=== PATIENT | female | born 1965 | race Caucasian/White ===

== ENCOUNTER 2020-03-28 16:28 | Outpatient (CLI) | payer OTHER, SELFPAY ==
--- NOTE | ~2020-03-28 | MM_ITS ---
EXAMINATION: MM screening amanda BI w elaine HISTORY: Screening mammogram, family history of breast cancer in her sister. TECHNIQUE: Craniocaudal and mediolateral oblique 3-D tomosynthesis images were obtained and synthetic 2-D images were generated. CAD analysis was submitted and interpreted. COMPARISON: No prior mammogram is available for comparison at this institution. BREAST PARENCHYMAL COMPOSITION: There are scattered areas of fibroglandular density. FINDINGS: RIGHT BREAST: There is no evidence of suspicious mass, calcification, or architectural distortion to suggest malignancy. LEFT BREAST: There is focal asymmetry and possible architectural distortion in the upper breast. IMPRESSION: 1. Focal asymmetry and possible architectural distortion of the left breast. 2. Comparison with prior mammograms is necessary. BI-RADS Category 0: Incomplete: Needs comparison with prior mammograms. Reviewed, dictated and finalized at location A. HANDLER
== END 2020-03-28 16:29 | disposition home or self-care (01) ==
LOC: ANHIMG 16:42
PROVIDERS: PCP Family Medicine; Visit Provider Family Medicine
DX: Z12.31 Encounter for screening mammogram for malignant neoplasm of breast (principal); R92.8 Other abnormal and inconclusive findings on diagnostic imaging of breast
CPT/HCPCS: 77063; 77067

== ENCOUNTER 2020-04-11 15:54 | Outpatient (CLI) | payer OTHER, SELFPAY ==
--- NOTE | ~2020-04-11 | CT_ITS ---
EXAMINATION: CT abdomen pelvis wo con DATE: 04/11/2020 16:37 INDICATION: Dorsalgia. Right-sided kidney pain. Nephrolithiasis. TECHNIQUE: Computed tomography (CT) of the abdomen and pelvis was performed without intravenous contr ast. Automated exposure control and iterative reconstruction technique were employed. The dose-length product was 187.82 mGy-cm. COMPARISON: 08/05/2016 FINDINGS: Mild atelectasis/scarring in the right middle lobe and lingula. 3 Pneumatoceles in the left lower lob e. Heart size is normal. No pericardial or pleural effusion. Diffuse hepatic steatosis. Multiple hepa tic cysts the largest measuring up to 4.4 cm. Gallbladder, spleen, pancreas and bilateral adrenal gla nds are normal. Bilateral nonobstructing nephrolithiasis with with about 5 tiny right renal stones th e largest measuring 1-2 mm at the lower pole and with 2 left renal stones the largest measuring 1 mm. Approximately 1 cm low-attenuation cyst at the lower pole of the right kidney. No stones seen along the course of the ureters and no hydronephrosis. No abnormal bowel wall thickening or obstruction. Wh at is likely the normal appendix is identified along side the cecum in the right lower quadrant. No p eriappendiceal inflammatory stranding to suggest acute appendicitis. Bladder, anteverted uterus and b ilateral adnexa are unremarkable. No free intraperitoneal gas or fluid. No pathologically enlarged ab dominal or pelvic lymphadenopathy. Bones are unremarkable. IMPRESSION: 1. Tiny bilateral nonobstructing renal stones, the largest measuring 2 mm in the right kidney. Reviewed, dictated and finalized at location A. ITORY ACCOUNT MANAGER IMPRESSION: 1. Tiny bilateral nonobstructing renal stones, the largest measuring 2 mm in th e right kidney.
== END 2020-04-11 15:55 | disposition home or self-care (01) ==
PROVIDERS: PCP Family Medicine; Visit Provider Physician Assistant
DX: M54.9 Dorsalgia, unspecified (principal); R39.15 Urgency of urination; N20.0 Calculus of kidney
CPT/HCPCS: 74176

== ENCOUNTER 2020-05-15 12:52 | Outpatient (CLI) | payer OTHER, SELFPAY ==
--- NOTE | ~2020-05-15 | MM_ITS ---
EXAMINATION: MM diagnostic mammo unilat LT HISTORY: Possible architectural distortion of the left breast on screening mammogram TECHNIQUE: Additional 3-D tomosynthesis images of the left breast were performed and synthetic 2-D im ages were generated. CAD analysis was submitted and interpreted. COMPARISON: 03/28/2020, 10/06/2014, 06/20/2011 BREAST PARENCHYMAL COMPOSITION: There are scattered areas of fibroglandular density. FINDINGS: There is no evidence of suspicious mass, calcification, or architectural distortion to sug gest malignancy. There has been no suspicious interval change. IMPRESSION: 1. No mammographic evidence of malignancy. 2. Recommend routine screening mammography in one year. BI-RADS Category 1: Negative Reviewed, dictated and finalized at location A.
== END 2020-05-15 12:53 | disposition home or self-care (01) ==
LOC: ANHIMG 12:53
PROVIDERS: PCP Family Medicine; Visit Provider Family Medicine
DX: R92.8 Other abnormal and inconclusive findings on diagnostic imaging of breast (principal)
CPT/HCPCS: 77065

== ENCOUNTER 2020-05-23 17:00 | Outpatient (RCR) | payer OTHER, SELFPAY ==
--- NOTE | 2020-05-02 17:54 | PTOPEVAL ---
PHYSICAL THERAPY EVALUATION Thank you for referring Madiha Connors to [facility].? Madiha was evaluated for the dx of right shoulder pain and marcellus. hip bursitis. The patient is scheduled to be seen for therapy? 1x/week for 4 weeks (1x wk per patient preference). Please review, sign, date and return this plan of care MELA. I agree with and certify that the following plan of care is medically necessary. Referring Physician Date Referring Provider: Du Draper MD *PT Outpatient Evaluation Start: 05/02/20 16:24 Freq: Status: Active Protocol: Document 05/02/20 16:24 MLV (Rec: 05/02/20 17:16 MLV [id number]) Assessment Status Evaluation Evaluation Information Problem Diagnosis right shoulder pain and marcellus. hip bursitis Onset February 2020 for shoulder, hips pain for a couple years Cause no event for either problems Additional Evaluation Detail The patient began having more serious shoulder pain, provoking her to seek MD assessment. The patient was diagnosed with bursitis/ tendonitis and tendon fraying. The patient received a cortisone shot with about 50% improvement. The patient has pain with driving, reaching behind her back, dressing, reaching overhead and sidelying to sleep. The patient works time checker with office work. For the hips, the pain occurs with sitting on soft surfaces longer times. The patient's hobbies are reading/crafts. The patient exercises semi regular with treadmill, bike and tae-meli. Diagnostic Tests X-Rays For This Problem Yes: bursitis/tendonitis shoulder Pain Assessment Timing of Pain Assessment Timing of Pain Assessment Assessment Pain Scale Pain Scale Used Numeric (1 - 10) Self Report Pain Assessment Bilateral Hip(s) Reported Pain Level 0 Other Pain Description pain after sitting that alleviates after 10-20ft movement Greatest Pain Intensity 8 Pain Aggravating Factors Prolonged Position,Sitting Pain Behaviors Limping Right Shoulder(s) Reported Pain Level
--- NOTE | 2020-05-10 08:37 | PCPTNOTE ---
Patient called & cancelled scheduled appointment this date due to having scheduled dentist appointment.
--- NOTE | 2020-06-13 10:14 | PCPTNOTE ---
PHYSICAL THERAPY EVALUATION Attending Provider: Du Draper MD Patient:Madiha Connors Date of :1965 Patient has not returned for any further treatments since 05/23/2020, therefore she will be discharged at this time. Patient?s initial visit was on 05/02/2020 16:15 and she had a total of 3 visits. The goals have been partially met. Thank you for referring this patient to [facility]. Please review, sign, date and return this discharge summary MELA. I have been updated about the patient's current status and I agree with discharge from the above service at this time. Referring Physician Date
== END 2020-06-14 07:45 | disposition home or self-care (01) ==
LOC: ANHPT 17:00
PROVIDERS: PCP Family Medicine; Referring Provider Orthopaedic Surgery; Visit Provider Orthopaedic Surgery
DX: M70.61 Trochanteric bursitis, right hip (principal); M70.62 Trochanteric bursitis, left hip; M25.511 Pain in right shoulder
CPT/HCPCS: 97014; 97110; 97140; 97162; G0283

== ENCOUNTER 2020-05-26 08:00 | Outpatient (CLI) | payer OTHER, SELFPAY ==
--- NOTE | ~2020-05-26 | US_ITS ---
EXAMINATION: US abdomen complete DATE: 05/26/2020 09:08 INDICATION: Other specified diseases of liver. TECHNIQUE: Multiple grayscale and Doppler ultrasound images of the abdomen were obtained. COMPARISON: CT abdomen and pelvis 04/11/2020, 08/05/16 FINDINGS: The abdominal aorta is normal in caliber. Inferior vena cava is normal. The visualized port ions of the head, body, and tail of the pancreas are normal. There is diffuse hepatic steatosis. Ther e are cysts in the liver measuring up to 3.8 cm. There is normal flow in main portal vein. The gallbl adder is normal in size. No gallstones or gallbladder wall thickening. There was no sonographic Rosalino y sign. The common duct is normal and measures 4 mm. The kidneys are normal in size. There is a 1.4 c m cyst in right kidney. The spleen is normal in size. IMPRESSION: 1. Diffuse hepatic steatosis. Reviewed, dictated and finalized at location A.
== END 2020-05-26 08:01 | disposition home or self-care (01) ==
PROVIDERS: PCP Family Medicine; Visit Provider Physician Assistant
DX: K76.89 Other specified diseases of liver (principal); N20.0 Calculus of kidney
CPT/HCPCS: 76700

== ENCOUNTER 2021-06-04 08:32 | Outpatient (CLI) | payer OTHER, SELFPAY ==
--- NOTE | ~2021-06-04 | MM_ITS ---
EXAMINATION: MM screening amanda BI w elaine HISTORY: Screening mammogram TECHNIQUE: Craniocaudal and mediolateral oblique 3-D tomosynthesis images were obtained and synthetic 2-D images were generated. CAD analysis was submitted and interpreted. COMPARISON: 05/15/2020 diagnostic left mammogram 03/28/2020 bilateral screening mammogram BREAST PARENCHYMAL COMPOSITION: There are scattered areas of fibroglandular density. FINDINGS: There is no evidence of suspicious mass, calcification, or architectural distortion to sugg est malignancy in either breast. There has been no suspicious interval change. IMPRESSION: 1. No mammographic evidence of malignancy. 2. Recommend routine screening mammography in one year. BI-RADS Category 1: Negative Reviewed, dictated and finalized at location A.
== END 2021-06-04 08:33 | disposition home or self-care (01) ==
LOC: ANHIMG 08:34
PROVIDERS: PCP Family Medicine; Visit Provider Family Medicine
DX: Z12.31 Encounter for screening mammogram for malignant neoplasm of breast (principal)
CPT/HCPCS: 77063; 77067

== ENCOUNTER 2021-08-12 09:44 | Outpatient (CLI) | payer OTHER, SELFPAY ==
--- NOTE | ~2021-08-12 | XR_ITS ---
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 COMPARISON: CT abdomen pelvis 04/11/2020. FINDINGS: Clear lung bases. Normal bowel gas pattern. No organomegaly. Punctate bilateral renal calc albaro. Pelvic phleboliths. Regional bones and soft tissues normal for age. IMPRESSION: Bilateral nephrolithiasis. Reviewed, dictated and finalized at location K. IMPRESSION: Bilateral nephrolithiasis.
== END 2021-08-12 09:45 | disposition home or self-care (01) ==
LOC: ANHIMG 09:50
PROVIDERS: PCP Family Medicine; Visit Provider Nurse Practitioner Family
DX: M62.89 Other specified disorders of muscle (principal); N20.0 Calculus of kidney
CPT/HCPCS: 74018

== ENCOUNTER 2023-05-29 15:12 | Outpatient (CLI) | payer OTHER, SELFPAY ==
--- NOTE | ~2023-05-29 | CT_ITS ---
CT Scan of the Chest without Contrast: Clinical Indication: Lung cancer screening, nicotine dependence Technique: Contiguous sections were acquired throughout the chest without intravenous contrast. Dose reduction technique was used on this scan by utilizing automated exposure control and iterative recon struction technique. The dose-length product (DLP) was 46.15 mGy-cm. Findings: There is no evidence of any significant mediastinal, hilar or axillary lymphadenopathy. The mediastin al soft tissues appear normal. There is no evidence of pleural or pericardial effusion. There is focal left apical scarring. No other pulmonary nodule evident. Images through the upper abdomen reveal hepatic cysts. Impression: Lung RADS 2: Benign appearance. 12 month follow-up screening CT advised. Reviewed, dictated and finalized at location . Impression: Lung RADS 2: Benign appearance. 12 month follow-up screening CT advised.
== END 2023-05-29 15:13 ==
LOC: MICIMG 15:13
PROVIDERS: PCP Family Medicine; Visit Provider Family Medicine
DX: Z12.2 Encounter for screening for malignant neoplasm of respiratory organs (principal); Z87.891 Personal history of nicotine dependence
CPT/HCPCS: 71271

== ENCOUNTER 2023-06-26 16:56 | Outpatient (CLI) | payer OTHER, SELFPAY ==
--- NOTE | ~2023-06-26 | XR_ITS ---
EXAMINATION: XR knee RT min 4V DATE: 06/26/2023 17:16 INDICATION: Right knee pain. TECHNIQUE: 5 views of right knee including standing views were obtained. COMPARISON: None. FINDINGS: There is lateral subluxation of patella. No fracture. There is moderate osteoarthritis of p atellofemoral compartment and mild osteoarthritis of medial and lateral compartments. No knee joint e ffusion. IMPRESSION: 1. Moderate right knee osteoarthritis. Reviewed, dictated and finalized at location E.
--- NOTE | ~2023-06-26 | XR_ITS ---
EXAMINATION: XR knee LT min 4V DATE: 06/26/2023 17:16 INDICATION: Left knee pain. TECHNIQUE: 4 views of left knee including standing views were obtained. COMPARISON: None. FINDINGS: Bone alignment is normal. No fracture. There is mild tricompartmental osteoarthritis. There is a small knee joint effusion. IMPRESSION: 1. Mild left knee osteoarthritis. 2. Small left knee joint effusion. Reviewed, dictated and finalized at location E.
== END 2023-06-26 16:57 | disposition home or self-care (01) ==
LOC: ANHIMG 16:57
PROVIDERS: PCP Family Medicine; Visit Provider Physician Assistant Surgical
DX: M17.0 Bilateral primary osteoarthritis of knee (principal); M25.462 Effusion, left knee
CPT/HCPCS: 73564

== ENCOUNTER 2024-09-05 14:03 | Outpatient (CLI) | payer OTHER, SELFPAY ==
--- NOTE | ~2024-09-05 | MM_ITS ---
EXAMINATION: MM screening amanda BI w elaine HISTORY: Screening TECHNIQUE: Craniocaudal and mediolateral oblique 3-D tomosynthesis images were obtained and synthetic 2-D images were generated. CAD analysis was submitted and interpreted. COMPARISON: Comparison to multiple prior studies sequentially, with oldest reviewed study dated 10/06. BREAST PARENCHYMAL COMPOSITION: Not dense: There are scattered areas of fibroglandular density. FINDINGS: There is no evidence of suspicious mass, calcification, or architectural distortion to sugg est malignancy in either breast. There has been no suspicious interval change. IMPRESSION: 1. No mammographic evidence of malignancy. 2. Recommend routine screening mammography in one year. BI-RADS Category 1: Negative Reviewed, dictated and finalized at location B.
--- OUTSIDE RECORDS SUMMARY | 2024-09-05 14:16 | XMS_ITS | Referral Summary ---
Author Organization [facility] Address [address] [place] [id number] Care Team Providers Care Cereal Maker Name Role Phone Winsome Carrizales MD Primary Care Provider Encounters Date Type Department Care Team Description 08/18/2024 Telephone [facility] [address] [place] [address] Sri Mckee RN 08/17/2024 6:51 PM CDT - 08/17/2024 11:59 PM CDT Hospital Encounter [facility] [address] [place] [address] NIKOLAS (stress urinary incontinence, female) Discharge Disposition: Discharge to home or self care 08/17/2024 3:00 PM CDT Office Visit [facility]ne[facility] [address] [place] [address] Health 7[address] [place] [address] Kylie White MD Slow transit constipation (Primary Dx); NIKOLAS (stress urinary incontinence, female); Cystocele with prolapse; Rectocele; Pressure of female perineum from Last 3 Months Allergies Active Allergy Reactions Criticality Noted Date Comments Codeine Itching Low 08/17/2024 Medications valACYclovir (VALTREX) 500 mg tablet 06/16/2024 Active Active Problems Problem Noted Date Diagnosed Date Thyroid nodule 11/17/2014 Social History Tobacco Use Types Packs/Day Years Used Date Smoking Tobacco: Former Cigarettes Tobacco Cessation:Counseling Given: Not Answered Comments No Sex and Gender Information Value Date Recorded Sex Assigned at Not on file Legal Sex Female 7:55 AM BUSINESS SUPPORT Gender Identity Not on file Sexual Orientation Not on file Last Filed Vital Signs Vital Sign Reading Time Taken Comments Blood Pressure 116/74 08/17/2024 3:04 PM CDT Pulse - - Temperature - - Respiratory Rate - - Oxygen Saturation - - Inhaled Oxygen Concentration - - Weight 64.4 kg (142 lb) 08/17/2024 3:04 PM CDT Height 162.6 cm (5' 4) 08/17/2024 3:04 PM CDT Body Mass Index 24.37 08/17/2024 3:04 PM CDT Plan of Treatment Not on file Insurance CIGNA CIGNA Care Teams Cereal Maker Relationship Specialty Start Date End Date Winsome Carrizales MD [address] [facility] [address] [place] [address] PCP - General 04/27/14
--- OUTSIDE RECORDS SUMMARY | 2024-09-05 14:16 | XMS_ITS | Clinical Summary ---
Author Organization [facility] Address [address], [address] [address] Phone Care Team Providers Care Hammer Driver Name Role Phone Winsome Carrizales MD Primary Care Provider [phone]- [phone] Social History Tobacco Use Types Packs/Day Years Used Date Smoking Tobacco: Never Assessed Comments No Sex and Gender Information Value Date Recorded Sex Assigned at Not on file Legal Sex Female 8:10 AM CDT Gender Identity Not on file Sexual Orientation Not on file Plan of Treatment Health Maintenance Due Date Last Done Comments Hepatitis C Virus (HCV) Screening 1965 TdaP Immunization 1965 Hepatitis B Immunization (1 of 3 - 19+ 3-dose series) 1986 Pap Smear 01/21/1988 Cervical Cancer Screening (CCS) 1997 HPV/Cotest 1997 Cologuard 01/21/2012 Colonoscopy 01/21/2012 Colorectal Cancer Screening 01/21/2012 Immunochemical Fecal Occult Blood 01/21/2012 Pneumococcal Immunization (50+ years) (1 of 1 - PCV) 2017 Zoster Immunization (1 of 2) 2017 SARS-COV-2 Immunization ( - season) 2023 Mammogram 11/04/2023 11/03/2022 Influenza Immunization (#1) 10/24/202410/24, 11/13/2016, 12/10/2015, Additional history exists Respiratory Syncytial Virus (RSV) Immunization (Adult) (1 - 1-dose 75+ series) 2042 Human Papillomavirus (HPV) Immunization Aged Out No longer eligible based on patient's age to complete this topic Meningococcal Immunization (ACWY) Aged Out No longer eligible based on patient's age to complete this topic Rotavirus Immunization Aged Out No lo nger eligible based on patient's age to complete this topic Procedures Procedure Name Priority Date/Time Associated Diagnosis Comments STAN SCREENING BILATERAL DIGITAL W CAD W TERE Routine 11/03/2022 3:30 PM CDT Encounter for screening mammogram for malignant neoplasm of breast from Last 3 Months or Most Recently Relevant to Health Maintenance Results * STAN SCREENING BILATERAL DIGITAL W CAD W TERE (11/03/2022 3:30 PM CDT) Anatomical Region Laterality Modality breast Bilateral Mammography 11/03/2022 3:28 PM CDT Addenda Addendum by Alberto Biggs MD on 12/18/2022 2:26 PM CDT THIS REPORT HAS BEEN AMENDED. AMENDMENT: 12/18/2022 Alberto Biggs M.D. The patient's prior examinations performed on 06/04/2021, 04/17/2020 and 03/28/2020 have become available for comparison. There is no significant change. Amended BI-RADS: 1 Negative - STAN SCREENING BILATERAL DIGITAL W CAD W TERE BILATERAL DIGITAL SCREENING MAMMOGRAM 3D/2D WITH CAD WITH MEDIOLATERAL OBLIQUE CRANIOCAUDAL: 11/03/2022 The study was acquired using digital technology and interpreted from soft copy. Current study was also evaluated with ICAD version 7.2. 2D digital mammographic views, as well as 3D digital tomosynthesis were performed in the CC and MLO projections. CLINICAL: Routine screening. Patient has no complaints. Personal history of cervical cancer. Sister with breast cancer. COMPARISONS: Additional films were requested but not obtained. Prior films are currently not available. BREAST TISSUE:There are scattered fibroglandular densities in both breasts. FINDINGS: No significant masses, calcifications, or other findings are seen in either breast. IMPRESSION: BI-RAD 1 NEGATIVE There is no mammographic evidence of malignancy. A 1 year screening mammogram is recommended. When the prior films are obtained, an addendum will be made. A letter will be sent to the patient with these results. The patient will be entered into a reminder system with a target due date of 1 year for her next screening exam. Electronically signed by: Alberto gonzalez/penrad:11/17/2022 16:08:10 Hat Blocker(s): RT Sriram(R)(M), [facility]: Normal Exam Reading location: [facility] BI-RADS: 1 Negative Narrative 11/18/2022 8:40 AM CDT - STAN SCREENING BILATERAL DIGITAL W CAD W TERE BILATERAL DIGITAL SCREENING MAMMOGRAM 3D/2D WITH CAD WITH MEDIOLATERAL OBLIQUE CRANIOCAUDAL: 11/03/2022 The study was acquired using digital technology and interpreted from soft copy. Current study was also evaluated with ICAD version 7.2. 2D digital mammographic views, as well as 3D digital tomosynthesis were performed in the CC and MLO projections. CLINICAL: Routine screening. Patient has no complaints. Personal history of cervical cancer. Sister with breast cancer. COMPARISONS: Additional films were requested but not obtained. Prior films are currently not available. BREAST TISSUE:There are scattered fibroglandular densities in both breasts. FINDINGS: No significant masses, calcifications, or other findings are seen in either breast. IMPRESSION: BI-RAD 1 NEGATIVE There is no mammographic evidence of malignancy. A 1 year screening mammogram is recommended. When the prior films are obtained, an addendum will be made. A letter will be sent to the patient with these results. The patient will be entered into a reminder system with a target due date of 1 year for her next screening exam. Electronically signed by: Alberto Biggs M.D. /penrad:11/17/2022 16:08:10 Hat Blocker(s): RT Sriram(R)(M), [facility] sent: Normal Exam Reading location: [facility] BI-RADS: 1 Negative Procedure Note Alberto Biggs MD - 11/18/2022 - STAN SCREENING BILATERAL DIGITAL W CAD W TERE BILATERAL DIGITAL SCREENING MAMMOGRAM 3D/2D WITH CAD WITH MEDIOLATERAL OBLIQUE CRANIOCAUDAL: 11/03/2022 The study was acquired using digital technology and interpreted from soft copy. Current study was also evaluated with ICAD version 7.2. 2D digital mammographic views, as well as 3D digital tomosynthesis were performed in the CC and MLO projections. CLINICAL: Routine screening. Patient has no complaints. Personal history of cervical cancer. Sister with breast cancer. COMPARISONS: Additional films were requested but not obtained. Prior films are currently not available. BREAST TISSUE:There are scattered fibroglandular densities in both breasts. FINDINGS: No significant masses, calcifications, or other findings are seen in either breast. IMPRESSION: BI-RAD 1 NEGATIVE There is no mammographic evidence of malignancy. A 1 year screening mammogram is recommended. When the prior films are obtained, an addendum will be made. A letter will be sent to the patient with these results. The patient will be entered into a reminder system with a target due date of 1 year for her next screening exam. Electronically signed by: Alberto gonzalez/justin:11/17/2022 16:08:10 Hat Blocker(s): RT Sriram(R)(M), [facility] letter sent: Normal Exam Reading location: [facility] BI-RADS: 1 Negative Winsome Carrizales MD IMG MAMMO ORDERABLES Edite d Result - Final from Last 3 Months or Most Recently Relevant to Health Maintenance Insurance [employer]IG[employer] Care Teams Hammer Driver Relationship Specialty Start Date End Date Winsome Carrizales MD [address] [facility] [address] [place] [address] PCP - General Family Medicine 07/09/16
--- OUTSIDE RECORDS SUMMARY | 2024-09-05 14:16 | XMS_ITS | Clinical Summary ---
Author Organization [facility] Address [address] [place] [address] Care Team Providers Care Landfill Grader Name Role Phone Unavailable Primary Care Provider Unavailabl e Social History Tobacco Use Types Packs/Day Years Used Date Smoking Tobacco: Never Assessed Comments Unknown Sex and Gender Information Value Date Recorded Sex Assigned at Not on file Legal Sex Female 7:12 PM CDT Gender Identity Not on file Sexual Orientation Not on file Plan of Treatment Health Maintenance Due Date Last Done Comments Cervical Cancer Screening Pa p Smear (Age 30 to 64) Every 3 Years 1967 Colorectal Cancer Screening Colonoscopy (10 Years) 1967 Annual Physical 1970 Hepatitis C 1985 DTaP, Tdap and Td Vaccines ( 1 - Tdap) 1986 Hepatitis B Vaccines (1 of 3 - 19+ 3-dose series) 1986 Cervical Cancer Screening Pa p with HPV Testing (Age 30 to 64) Every 5 Years 1997 Cervical Cancer Screening with HPV 1997 Mammogram Screening 2007 Pneumococcal Vaccine: 50+ Ye ars (1 of 1 - PCV) 2017 Zoster Vaccines (1 of 2) 2017 COVID-19 Vaccine ( - 2023-2 5 season) 2023 Meningococcal B Vaccine Aged Out No l onger eligible based on patient's age to complete this topic Meningococcal Vaccine Aged Out No jozef matthwe eligible based on patient's age to complete this topic RSV Immunizations Under 20 Months Aged Out No longer eligible based on patient's age to complete this topic
--- OUTSIDE RECORDS SUMMARY | 2024-09-05 14:16 | XMS_ITS | Clinical Summary ---
Author Organization [facility] Address [address] [place] [address] Care Team Providers Care Stagecraft Professor Name Role Phone Winsome Carrizales MD Primary Care Provider Allergies Active Allergy Reactions Criticality Noted Date Comments Codeine Itching Low 08/17/2024 Medications valACYclovir (VALTREX) 500 mg tablet 06/16/2024 Active Active Problems Problem Noted Date Diagnosed Date Thyroid nodule 11/17/2014 Encounters Date Type Department Care Team Description 08/18/2024 Telephone [facility] Obstetrics and Gynecology [address] [place] [address] Sri Mckee RN 08/17/2024 6:51 PM CDT - 08/17/2024 11:59 PM CDT Hospital Encounter [facility] [address], [place] [id number] NIKOLAS (stress urinary incontinence, female) Discharge Disposition: Discharge to home or self care 08/17/2024 3:00 PM CDT Office Visit [facility] Obstetrics and Gynecology [address] [place] [address] Kylie White MD Slow transit constipation (Primary Dx); NIKOLAS (stress urinary incontinence, female); Cystocele with prolapse; Rectocele; Pressure of female perineum from Last 3 Months Family History Medical History Relation Name Comments Breast cancer Sister Family history of malignant neoplasm of breast - (Added by TW Conv) Relation Name Status Comments Sister Social History Tobacco Use Types Packs/Day Years Used Date Smoking Tobacco: Former Cigarettes Tobacco Cessation:Counseling Given: Not Answered Comments No Sex and Gender Information Value Date Recorded Sex Assigned at Not on file Legal Sex Female 7:55 AM PHYSICIAN GYNECOLOGIST Gender Identity Not on file Sexual Orientation Not on file Obstetrics History Para Term AB IAB SAB Ectopic Multiple Livin g Live Births 8 7 1 1 1 1 Date Outcome GA Total Labor Labor/2nd/3rd Weight Sex Type Anes PTL Kiley A1 A5 Name Clin SAB Para Vaginal Para Vaginal Para Vaginal Para Vaginal Living Para C-Secti on Para Vaginal Para Vaginal Last Filed Vital Signs Vital Sign Reading [...] 08/17/2024 3:04 PM CDT Plan of Treatment Health Maintenance Due Date Last Done Comments Cervical Cancer Screening 1967 Colon Cancer Screening-Colonoscopy 1967 Depression Screening 1967 Hepatitis C Screening 1967 DTaP/Tdap/Td Vaccine (1 - Tdap) 1978 Hepatitis B Screening 1985 Regular Well Visit/Exam 18-64 1985 Zoster Vaccine (1 of 2) 2017 Breast Cancer Screening-Mammogram 11/04/2023 11/03/2022, 11/03/2022 Influenza Vaccine (Season Ended) 2024 11/06/2019, 11/13/2016, 12/10/2015, Additional history exists Pneumococcal vaccine <65 Aged Out No longer eligible based on patient's age to complete this topic Insurance [facility] [employer] Care Teams Stagecraft Professor Relationship Specialty Start Date End Date Winsome Carrizales MD [address] [place] [address] PCP - General 04/27/14
== END 2024-09-05 14:04 | disposition home or self-care (01) ==
LOC: ANHIMG 14:04
PROVIDERS: PCP Family Medicine; Visit Provider Student in an Organized Health Care Education/Training Program
DX: Z12.31 Encounter for screening mammogram for malignant neoplasm of breast (principal)
CPT/HCPCS: 77063; 77067